=== PATIENT | male | born 1985 | race African-American/Black ===

== ENCOUNTER 2018-03-23 10:29 | Emergency (ER) | payer SELFPAY ==
[2018-03-23 10:37] VITALS: BP 106/69
--- NOTE | 2018-03-23 10:50 | ER Document Report ---
ED General - General Chief Complaint: Abscess Stated Complaint: LEFT ARM PAIN, SWELLING Time Seen by Provider: 03/23/18 10:50 Notes: Patient is a 32-year-old male that presents to the emergency department for chief complaint of left arm abscess. Patient reports he noticed a bump on his arm 2 days ago, on the left forearm, he thought maybe was bit by a spider, seem to get worse and swelled more, so he decided come to the emergency department. He describes the pain as 3 out of 10, an aching and throbbing sensation in his left forearm, denies any numbness, tingling or weakness in his hands. He denies noting any fevers, chills, night sweats, nausea, vomiting or abdominal pain. Past Medical History: Denies chronic medical conditions Past Surgical History: Denies surgical history Social History: Admits to smoking cigarettes, denies alcohol or drug use Family History: Reviewed and noncontributory for presenting illness Allergies: Reviewed, see documented allergy list. REVIEW OF SYSTEMS: Unless otherwise stated in this report the patient's positive and negative responses for review of systems for constitutional, eyes, ENT, cardiovascular, respiratory, gastrointestinal, neurological, genitourinary, musculoskeletal, and integumentary systems and related systems to the presenting problem are either as stated in the HPI or were not pertinent or were negative for the symptoms and/or complaints related to the presenting medical problem. PHYSICAL EXAMINATION: Vital signs reviewed, nursing noted reviewed. GENERAL: Well-appearing, well-nourished and in no acute distress. HEAD: Atraumatic, normocephalic. EYES: Eyes appear normal, extraocular movements intact, sclera anicteric, conjunctiva are normal. ENT: nares patent, oropharynx clear without exudates. Moist mucous membranes. NECK: Normal range of motion, supple without lymphadenopathy LUNGS: Breath sounds clear to auscultation bilaterally and equal. No wheezes rales or rhonchi. HEART: Regular rate and rhythm without murmurs ABDOMEN: Soft, nontender, normoactive bowel sounds. No rebound, guarding, or rigidity. No masses appreciated. EXTREMITIES: Left forearm, there is a small furuncle, possible early abscess, no fluctuance, or drainage at this time, with surrounding erythema, measuring approximately 4 cm in diameter, tender to palpate, the rest the patient's extremity exam is grossly unremarkable. good range of motion, no pitting or edema. NEUROLOGICAL: No focal neurological deficits. Moves all extremities spontaneously Motor and sensory grossly intact on exam. PSYCH: Normal mood, normal affect. SKIN: Warm, Dry, normal turgor, no rashes noted on exposed skin TRAVEL OUTSIDE OF THE [place] IN LAST 30 DAYS: No - Related Data Allergies/Adverse Reactions: No Known Allergies Allergy (Verified 03/23/18 10:31) Past Medical History - Social History Smoking Status: Current Every Day Smoker Family History: Reviewed & Not Pertinent Renal/ Medical History: Denies: Hx Peritoneal Dialysis Physical Exam - Vital signs Vitals: Temp Pulse Resp BP Pulse Ox 98.3 F 97 16 106/69 97 03/23/18 10:34 03/23/18 10:34 03/23/18 10:34 03/23/18 10:34 03/23/18 10:34 Course - Re-evaluation Re-evalutation: Patient seen and examined vital signs reviewed. Patient was evaluated and treated as appropriate for the patient's presenting symptoms and complaint, with consideration of any critical or life threatening conditions that may be associated with their obtained history and exam as noted above. Patient was treated with Keflex and Bactrim The patient was re-evaluated and was stable Evaluation was most consistent with small abscess, with surrounding cellulitis Plan of care was discussed with the patient at this point, after careful consideration I feel that that patient can be discharged from the emergency department, the patient was educated treatments and reasons to return to the emergency department based on their presumed diagnosis as noted above, they were advised to followup with a primary care physician in 2-3 days. Patient was agreeable to plan of care. *Note is created using voice recognition software and may contain spelling, syntax or grammatical errors. - Vital Signs Vital signs: Temp Pulse Resp BP Pulse Ox 98.3 F 97 16 106/69 97 03/23/18 10:34 03/23/18 10:34 03/23/18 10:34 03/23/18 10:34 03/23/18 10:34 Discharge - Discharge Clinical Impression: Abscess Cellulitis Qualifiers: Site of cellulitis: extremity Site of cellulitis of extremity: upper extremity Laterality: left Qualified Code(s): L03.114 - Cellulitis of left upper limb Condition: Stable Disposition: HOME, SELF-CARE Instructions: Abscess ([facility]), Cephalexin ([facility]), Trimethoprim-Sulfa ([facility]) Prescriptions: Cephalexin Monohydrate [Keflex 500 mg Capsule] 500 mg PO TID #21 capsule Sulfamethoxazole/Trimethoprim [Bactrim Ds Tablet] 1 each PO BID #14 tablet Referrals: GALLO CAMPUZANO MD [ACTIVE STAFF] - Follow up in 3-5 days
[2018-03-23] MEDS ORDERED: CEPHALEXIN 500 MG CAPSULE PO ONE (11:11)
[2018-03-23] MEDS ORDERED: SULFAMETHOXAZOLE/TRIMETHOPRIM 800-160 MG TABLET PO ONE (11:11)
== END 2018-03-23 11:40 | disposition home or self-care (01) ==
LOC: ER 10:29
DX: L02.414 Cutaneous abscess of left upper limb (principal); L03.114 Cellulitis of left upper limb; F17.200 Nicotine dependence, unspecified, uncomplicated
CPT/HCPCS: 99282

== ENCOUNTER 2018-08-15 03:16 | Emergency (ER) | payer SELFPAY ==
[2018-08-15] MEDS ORDERED: DIPH/PERTUSS(ACELL)/TETANUS VAC/PF 0.5 ML SYR (>=10YO) IM ONE (07:20)
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
[2018-08-15] MEDS ORDERED: LIDOCAINE 1% INJ-PF (10 MG/ML) 30 ML SDV INJ ONE (08:46)
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
[2018-08-15] MEDS ORDERED: IBUPROFEN 800 MG TABLET PO ONE (10:07)
[2018-08-15 10:16] VITALS: BP 140/88
== END 2018-08-15 10:18 | disposition home or self-care (01) ==
LOC: ER 03:16
PROC: 0HQ1XZZ Repair Face Skin, External Approach (ICD-10-PCS; principal; 2018-08-15)
DX: S01.111A Laceration without foreign body of right eyelid and periocular area, initial encounter (principal); Y08.89XA Assault by other specified means, initial encounter; F17.200 Nicotine dependence, unspecified, uncomplicated
CPT/HCPCS: 99283; 90471; 90715; 12013; J3490

== ENCOUNTER 2018-09-05 10:01 | Emergency (ER) | payer SELFPAY ==
[2018-09-05 10:09] VITALS: BP 120/67
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
== END 2018-09-05 11:40 | disposition home or self-care (01) ==
LOC: ER 10:01
DX: S01.111D Laceration without foreign body of right eyelid and periocular area, subsequent encounter (principal); X58.XXXD Exposure to other specified factors, subsequent encounter; F17.210 Nicotine dependence, cigarettes, uncomplicated